=== PATIENT | male | born 1970 | race American Indian/Alaskan Native ===

== ENCOUNTER 2016-10-17 21:46 | Emergency (ER) | payer OTHER ==
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
[2016-10-18] MEDS ORDERED: ULTRAM PO ONE (05:21)
[2016-10-18 05:34] VITALS: BP 121/79
== END 2016-10-18 05:33 | disposition home or self-care (01) ==
LOC: ED 21:46
DX: S16.1XXA Strain of muscle, fascia and tendon at neck level, initial encounter (principal); S39.012A Strain of muscle, fascia and tendon of lower back, initial encounter; V49.49XA Driver injured in collision with other motor vehicles in traffic accident, initial encounter; Y93.89 Activity, other specified; Y99.9 Unspecified external cause status; Y92.410 Unspecified street and highway as the place of occurrence of the external cause
CPT/HCPCS: 72040; 72100

== ENCOUNTER 2018-07-06 08:29 | Emergency (ER) | payer SELFPAY ==
[2018-07-06] MEDS ORDERED: FLEXERIL PO ONE (08:42)
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
[2018-07-06 08:43] VITALS: BP 103/63
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
== END 2018-07-06 10:00 | disposition home or self-care (01) ==
LOC: ED 08:29
DX: M79.10 Myalgia, unspecified site (principal); F17.200 Nicotine dependence, unspecified, uncomplicated; V89.2XXA Person injured in unspecified motor-vehicle accident, traffic, initial encounter; Y93.89 Activity, other specified; Y92.488 Other paved roadways as the place of occurrence of the external cause; Y99.8 Other external cause status
CPT/HCPCS: 99282

== ENCOUNTER 2020-05-30 11:05 | Emergency (ER) | payer OTHER, MEDICAID ==
[2020-05-30 11:11] VITALS: BP 124/64
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
== END 2020-05-30 12:21 | disposition home or self-care (01) ==
LOC: ED 11:05
DX: S46.912A Strain of unspecified muscle, fascia and tendon at shoulder and upper arm level, left arm, initial encounter (principal); S16.1XXA Strain of muscle, fascia and tendon at neck level, initial encounter; Z79.899 Other long term (current) drug therapy; V49.49XA Driver injured in collision with other motor vehicles in traffic accident, initial encounter; Y92.410 Unspecified street and highway as the place of occurrence of the external cause; Y93.89 Activity, other specified; Y99.8 Other external cause status
CPT/HCPCS: 72125